=== PATIENT | female | born 2000 | race American Indian/Alaskan Native ===

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

== ENCOUNTER 2021-02-12 13:53 | Outpatient (CLI) | payer MEDICAID, OTHER ==
[2021-02-12 15:06] VITALS: BP 117/59
[2021-02-12 15:59] LABS: Bilirubin,Urine NEG (Negative); Blood,Urine NEG (Negative); Color,Urine Yellow (Yellow); Mucus,Urine FEW /HPF
[2021-02-12] MEDS ORDERED: LACTATED RINGERS 1,000 ML IV SCH (16:00)
== END 2021-02-12 18:33 | disposition home or self-care (01) ==
LOC: ED 13:53 → TRG 13:53 → APU 14:17 → EDSTATUS 14:17 → TRG 18:33
PROVIDERS: ATTEND Obstetrics & Gynecology
DX: O26.892 Other specified pregnancy related conditions, second trimester (principal); R10.9 Unspecified abdominal pain; Z3A.27 27 weeks gestation of pregnancy
CPT/HCPCS: 59025; 81001; 87086; 96361; 96365; 96366; J0690; J7120

== ENCOUNTER 2021-02-27 17:49 | Outpatient (CLI) | payer MEDICAID ==
[2021-02-27] MEDS ORDERED: BETAMET ACET/BETAMET NA PH 6 MG/ML INJ 5 ML MDV IM ONE (19:27)
== END 2021-02-27 18:55 | disposition home or self-care (01) ==
LOC: TRG 17:49 → APU 17:49 → TRG 18:55
PROVIDERS: ATTEND Obstetrics & Gynecology
DX: O47.03 False labor before 37 completed weeks of gestation, third trimester (principal); Z3A.31 31 weeks gestation of pregnancy
CPT/HCPCS: 96372; J0702

== ENCOUNTER 2021-02-28 18:06 | Outpatient (CLI) | payer MEDICAID, OTHER ==
[2021-02-28] MEDS ORDERED: BETAMET ACET/BETAMET NA PH 6 MG/ML INJ 5 ML MDV IM ONE (19:23)
== END 2021-02-28 18:38 | disposition home or self-care (01) ==
LOC: TRG 18:06 → APU 18:07 → TRG 18:38
PROVIDERS: ATTEND Obstetrics & Gynecology
DX: O47.03 False labor before 37 completed weeks of gestation, third trimester (principal); Z3A.29 29 weeks gestation of pregnancy
CPT/HCPCS: 96372; J0702

== ENCOUNTER 2021-05-28 11:54 | Emergency (ER) | payer OTHER | END 2021-05-28 18:00 | disposition left against medical advice (07) | LOC: ED 11:54 | DX: Z00.8 Encounter for other general examination (principal); Z53.21 Procedure and treatment not carried out due to patient leaving prior to being seen by health care provider ==